=== PATIENT | female | born 1960 | race Caucasian/White ===

== ENCOUNTER 2022-04-21 17:18 | Emergency (ER) | payer BC ==
[2022-04-21 18:23] LABS: Bacteria Few /HPF (None Seen); Bilirubin Negative (Negative); Blood Large (Negative); Epithelial Cells Moderate /HPF (None Seen); Glucose, Urine Negative (Negative); Ketones Trace (Negative); Leukocyte Esterase Moderate (Negative); Nitrite Negative (Negative); Protein,Urine Dip 30 (Negative); RBC 0-2 /HPF (0-5)
[2022-04-21 18:24] LABS: ADD URINE CULTURE? YES (NO); Appearance Clear (Clear)
--- NOTE | 2022-04-21 18:34 | ERPHSYRPT ---
- History of Present Illness Time Seen by Provider: 04/21/22 18:33 Source: patient Exam Limitations: no limitations Patient Subjective Stated Complaint: Pt states "I had really bad belly pain and then I started bleeding from my lady parts. Blood is bright red and I do not hurt now but it was allot of blood." Triage Nursing Assessment: Pt presented alert and oriented X 3, skin pwd. Pt ambulates with an upright steady gait, able to speak in clear full sentences. Pt advised she has saturated two pads in the past hour. No apparent respiratory distress. Physician History: Patient is a 61-year-old female presents emergency department for evaluation of transient abdominal pain followed by vaginal bleeding. Symptoms occurred earlier today. Patient states that the pain is since resolved. Patient is pain-free. Patient's vaginal bleeding has resolved as well. Patient has no complaints at this time. When present symptoms were moderate to severe in intensity. Pain currently 0 out of 10. No trauma. No fever. Patient denies a history of the same. at bedside. They voiced no other complaints or concerns at this time. Portions of this note were created with voice recognition technology. There may be grammatical, spelling, punctuation or sound alike errors Timing/Duration: today Severity: moderate Modifying Factors: Improves With: nothing Associated Symptoms: denies symptoms Allergies/Adverse Reactions: doxycycline Allergy (Mild, Verified 10/16/13 12:06) Home Medications: Citalopram Hydrobromide [Celexa] 60 mg PO HS 10/14/13 [History] Omeprazole [Prilosec] 40 mg PO DAILY 10/14/13 [History] Losartan/Hydrochlorothiazide [Losartan-Hctz 50-12.5 mg Tab] 1 each PO DAILY 04/21/22 [History] Hx Tetanus, Diphtheria Vaccination/Date Given: No Hx Influenza Vaccination/Date Given: No Hx Pneumococcal Vaccination/Date Given: No Immunizations Up to Date: Yes Travel Risk - International Travel Have you traveled outside of the country in past 3 weeks: No - Coronavirus Screening Are you exhibiting any of the following symptoms?: No Close contact with a COVID-19 positive Pt in past 14-21 Days: No - Vaccine Status Have you recieved a Covid-19 vaccination: Yes First Aid Attendant: Moderna - Vaccination Dates Date of 2cond Vaccination (if applicable): 2020 - Review of Systems Constitutional: No Symptoms, No Fever, No Chills Eyes: No Symptoms Ears, Nose, & Throat: No Symptoms Respiratory: No Symptoms, No Cough, No Dyspnea Cardiac: No Symptoms, No Chest Pain, No Edema, No Syncope Abdominal/Gastrointestinal: No Symptoms, No Abdominal Pain, No Nausea, No Vomiting, No Diarrhea Genitourinary Symptoms: No Symptoms, No Dysuria Musculoskeletal: No Symptoms, No Back Pain, No Neck Pain Skin: No Symptoms, No Rash Neurological: No Symptoms, No Dizziness, No Focal Weakness, No Sensory Changes Psychological: No Symptoms Endocrine: No Symptoms Hematologic/Lymphatic: No Symptoms Immunological/Allergic: No Symptoms All Other Systems: Reviewed and Negative - Past Medical History Pertinent Past Medical History: Yes Neurological History: No Pertinent History ENT History: No Pertinent History Cardiac History: Hypertension Respiratory History: Pneumonia Endocrine Medical History: No Pertinent History Musculoskeletal History: Other GI Medical History: No Pertinent History History: No Pertinent History Psycho-Social History: Depression Female Reproductive Disorders: No Pertinent History - Past Surgical History Past Surgical History: Yes Neuro Surgical History: No Pertinent History Cardiac: No Pertinent History Respiratory: No Pertinent History Gastrointestinal: Exploratory Laparoscopy Genitourinary: No Pertinent History Musculoskeletal: Orthopedic Surgery Female Surgical History: Breast Implant Other Surgical History: "TOE SURGERY". hysterectomy - Social History Smoking Status: Former smoker How long have you smoked: YRS Exposure to second hand smoke: No Drug Use: none Patient Lives Alone: No - Nursing Vital Signs Nursing Vital Signs: Initial Vital Signs Temperature 97.5 F 04/21/22 17:24 Pulse Rate 87 04/21/22 17:24 Respiratory Rate 22 04/21/22 17:24 Blood Pressure 156/83 04/21/22 17:24 O2 Sat by Pulse Oximetry 97 04/21/22 17:24 Pain Scale Pain Intensity 0 - Physical Exam General Appearance: no apparent distress, alert Eye Exam: PERRL/EOMI, eyes nml inspection Ears, Nose, Throat Exam: normal ENT inspection, TMs normal, pharynx normal, moist mucous membranes Neck Exam: normal inspection, non-tender, supple, full range of motion Respiratory Exam: normal breath sounds, lungs clear, No respiratory distress Cardiovascular Exam: regular rate/rhythm, normal heart sounds, normal peripheral pulses Gastrointestinal/Abdomen Exam: soft, normal bowel sounds, No tenderness, No mass Back Exam: normal inspection, normal range of motion, No CVA tenderness, No vertebral tenderness Extremity Exam: normal inspection, normal range of motion, pelvis stable Neurologic Exam: alert, oriented x 3, cooperative, normal mood/affect, nml cerebellar function, nml station & gait, sensation nml, No motor deficits Skin Exam: normal color, warm, dry, No rash Lymphatic Exam: No adenopathy SpO2 Interpretation: normal SpO2: 97 O2 Delivery: Room Air - Course Nursing assessment & vital signs reviewed: Yes - CT Exams Abdomen/Pelvis CT Interpretation: Tele-radiologist Report (No comps. Negative abdomen pelvis.) Ordered Tests: Active Orders 24 hr Category Date Time Status ABDOMEN AND PELVIS W/0 CONTRAS [CT] Stat Exams 04/21/22 17:44 Taken CULTURE,URINE Stat Lab 04/21/22 18:08 Received UA W/RFX UR CULTURE Stat Lab 04/21/22 18:08 Completed Medication Summary Generic Name Dose Route Start Last Admin Trade Name Freq PRN Reason Stop Dose Admin Nitrofurantoin Macrocrystals 100 mg 04/21/22 19:44 Nitrofurantoin Macro 100 Mg Capsule PO 04/21/22 19:45 STAT ONE Lab/Rad Data: Laboratory Results 04/21/22 Range/Units 18:08 Urine Color Yellow (Yellow) Urine Appearance Clear (Clear) Urine pH 7.0 (4.6-8.0) Ur Specific [place] 1.020 (1.005-1.030) Urine Protein 30 (Negative) Urine Glucose (UA) Negative (Negative) mg/dL Urine Ketones Trace A (Negative) Urine Blood Large A (Negative) Urine Nitrite Negative (Negative) Urine Bilirubin Negative (Negative) Urine Urobilinogen 1.0 A (0.2) mg/dL Ur Leukocyte Esterase Moderate A (Negative) U Hyaline Cast (Auto) 3-5 A (0-2) /LPF Urine Microscopic RBC 0-2 (0-5) /HPF Urine Microscopic WBC 11-20 A (0-5) /HPF Ur Epithelial Cells Moderate A (None Seen) /HPF Urine Bacteria Few A (None Seen) /HPF Urine Culture Reflexed YES (NO) - Progress Progress: improved Progress Note: Patient is a 61-year-old female presents emergency department for evaluation of brief lower abdominal pain and vaginal bleeding. Episode occurred prior to arrival. However pain was transient. Patient currently pain-free. Upon arrival to our ED patient was pain-free. Vaginal bleeding essentially completely resolved. Physical exam nonremarkable. Unable to elicit abdominal pain or pelvic pain or tenderness. Patient declined pain medication because she has no pain. Patient's presentation was acute. No significant comorbidities to complicate patient's current symptomology. Patient states she has a history of hysterectomy. Tests ordered include urinalysis and CT abdomen pelvis. CT abdomen pelvis negative. Urinalysis reveals urinary tract infection. Patient received a dose of Macrobid in our ED. A prescription for Macrobid was forwarded to patient's pharmacy. Patient agrees to follow-up with her primary care doctor within 48 hours for evaluation. Patient also sees Dr. Arnold who is an IMPLEMENTATION ARCHIT[employer] physician in [place]. Patient understands the importance of follow-up. On the differential of vaginal bleeding in an elderly patient is malignancy. This was explained to patient. Urgent follow-up is imperative. Patient understands the importance of follow- up. at bedside. They both agree to follow-up with her IMPLEMENTATION ARCHITECT and primary care doctor for further evaluation and treatment. Level of EM service provided was moderate. Complexity of problem addressed was low. Complexity of data analyzed was low. Risk of complication and or risk of morbidity/mortality of patient management is moderate. A prescription for Macrobid was forwarded to patient's pharmacy. No critical care time. Patient served as an independent historian. Time spent during discharge is approximately 10 minutes. Patient voices no other complaints or concerns at this time. Portions of this note were created with voice recognition technology. There may be grammatical, spelling, punctuation or sound alike errors 04/21/22 19:48 Counseled pt/family regarding: lab results, diagnosis, need for follow-up, rad results Medical Desision Making - Diagnostic Testing Diagnostic Testing: Diagnostic tests were ordered,analyzed, and reviewed by me and used in my medical decision making for this patient. Radiologic studies (if ordered) were read by me initially then discussed with the radiologist . - Departure Departure Disposition: Home Clinical Impression: Urinary tract infection, Vaginal bleeding Condition: Stable Critical Care Time: No Referrals: BHAVIK MANJARREZ MD [Primary Care Provider] - Follow up/PCP as directed Prescriptions: Nitrofurantoin Macro 100 mg [Macrobid 100MG Capsule] 100 mg PO BID 7 Days #14 cap
[2022-04-21] MEDS ORDERED: Macrobid 100MG Capsule PO ONE (19:44)
[2022-04-21] MEDS ORDERED: Macrobid 100MG Capsule ONE (19:46)
[2022-04-21 19:50] VITALS: PULSE 79
[2022-04-21 19:51] VITALS: BP 144/76
[2022-04-21 19:52] VITALS: O2SAT 97
--- NOTE | 2022-04-22 08:35 | XRAY ---
Indication: Vaginal bleeding and pressure. Multiple contiguous axial images obtained through the abdomen and pelvis without contrast. Comparison: None Lung bases demonstrate minimal dependent atelectasis. Heart not enlarged. Small hiatal hernia. Noncontrasted stomach and bowel loops appear nonobstructed with normal appendix. Previous cholecystectomy and hysterectomy. No free fluid/air. Incidental splenic calcified granulomas. Remaining liver, pancreas, spleen, adrenal glands, kidneys, ureters, and bladder are unremarkable for noncontrast exam. Minimal aortic calcifications without AAA. Osseous structures intact with mild degenerative changes throughout the thoracolumbar spine and both hips. No ventral or inguinal hernias. Impression: 1. Small hiatal hernia, cholecystectomy, hysterectomy, arteriosclerotic disease, degenerative spondylosis, and old granulomatous disease. 2. Remaining CT abdomen/pelvis without contrast exam is negative.
== END 2022-04-21 20:00 | disposition home or self-care (01) ==
LOC: ED 17:18
DX: N39.0 Urinary tract infection, site not specified (principal); N93.9 Abnormal uterine and vaginal bleeding, unspecified; R10.9 Unspecified abdominal pain; I10 Essential (primary) hypertension; Z79.899 Other long term (current) drug therapy
CPT/HCPCS: 74176; 81001; 87077; 87086; 87186; 99283; A9270-GY

== ENCOUNTER → 2024-01-11 | Day surgery (SDC) | payer BC ==
[~2024-01-11] MED LIST: CEFAZOLIN 2 GM/100 ML NaCl 2 GM/100 ML IVPB IV ONE; DIPRIVAN 200 MG/20 ML IV ONE; Decadron 4 MG INJ ONE; Ephedrine Sulfate 50 MG/ML ONE; Hydromorphone 1 mg/ml Injection ONE; Lactated Ringers 1,000 ML IV ONE; MARCAINE 0.5%-EPI 1:200,000 VL IJ ONE; SUBLIMAZE 100 MCG/2 ML ONE; Zofran 4 MG/2 ML VIAL ONE
[2024-01-11] MEDS: Lactated Ringers 1,000 ML IV SCH (06:19)
[2024-01-11] MEDS: CEFAZOLIN 2 GM/100 ML NaCl 2 GM/100 ML IVPB IV SCH (06:20)
[2024-01-11 06:33] VITALS: RESP 18
[2024-01-11 06:59] LABS: ANION GAP 13.8 MEQ/L (5-15); Creatinine 1 1.15 mg/dL (0.52-1.04); EST GLOMERULAR FILTRATION RATE 53.5 ML/MIN; Potassium 4.1 mmol/L (3.5-5.1)
[2024-01-11 10:31] VITALS: BP 142/87; PULSE 91; TEMP 96.9; O2SAT 97
--- NOTE | 2024-01-13 10:18 | OP ---
SURGERY DATE/TIME: 01/11/2024 [id number] PREOPERATIVE DIAGNOSES: 1) Torn left medial and lateral menisci. 2) Chondromalacia patella. POSTOPERATIVE DIAGNOSES: 1) Torn left medial and lateral menisci. 2) Chondromalacia patella. 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 PROCEDURE: Arthroscopy of the left knee with partial medial and lateral meniscectomies, chondroplasty of the medial femoral condyle, patella and trochlear groove. SURGEON: Trent Perez II, DO ANESTHESIA: General. DESCRIPTION OF PROCEDURE AND FINDINGS: The patient was identified and informed consent was obtained. The patient was taken to the operative suite and given the general anesthetic. Following this, a tourniquet was placed high on the left thigh. The left lower extremity was then placed into the knee velasquez and prepped and draped in the usual sterile fashion. A standard time out was taken. At this point, the leg was exsanguinated and tourniquet elevated to 350 mmHg. A standard superomedial portal was created in the knee and then trocar and cannula were placed in the joint. The joint was distended with the arthroscopic pump. Inferolateral portal was created with an 11 blade and the arthroscope was placed in through our cannula. An 18-gauge spinal needle identified the level for the inferomedial portal which was also created with an 11 blade. The knee was then inspected in a systematic fashion. The suprapatellar pouch had no loose bodies or synovial hypertrophy. Undersurface of the patella had some grade 2 and 3 chondromalacia and a chondroplasty was performed utilizing the motorized shaver. The trochlear groove was noted to have some grade 3 and some early grade 4 chondromalacia and a chondroplasty was also performed. Patella seated nicely within the femoral groove at about 30 degrees of flexion. Gutters were inspected and no loose bodies or synovial hypertrophy was encountered. Scope was placed in the medial compartment where a tear was noted involving the middle and posterior horns of the medial meniscus, resecting with the handheld biting instruments and shaved to a smooth transition with the shaver. Patient did have some significant grade 2 and 3 chondromalacia on the medial femoral condyle and a chondroplasty was performed with the shaver. The scope was placed into the intercondylar notch region where the anterior cruciate ligament was noted to be intact. Scope was then placed in the lateral compartment where a small tear was noted in the lateral meniscus in the middle horn. This was resected with the handheld biting instruments and shaved to a smooth transition with the shaver. The knee was then reinspected and copiously irrigated. No further pathology identified. The instrumentation was removed and the portal sites were then closed with interrupted 4-0 nylon suture. Adaptics, 4 x 4's and a standard postop arthroscopy dressing applied. It should be noted that the knee was infiltrated with 30 mL of 0.25% Marcaine with epinephrine into the joint and portal sites. The patient was then transferred to the cart and taken to the recovery room in satisfactory condition having tolerated the procedure well.
== END ==
LOC: SDC 05:43
PROVIDERS: ATTEND Orthopaedic Surgery
DX: S83.222A Peripheral tear of medial meniscus, current injury, left knee, initial encounter (principal); S83.262A Peripheral tear of lateral meniscus, current injury, left knee, initial encounter; M25.562 Pain in left knee; M94.262 Chondromalacia, left knee
CPT/HCPCS: 36415; 80048; J0690; J1100; J1171; J2405; J2704; J3010

== ENCOUNTER 2024-12-17 05:51 | Day surgery (SDC) | payer BC ==
[2024-12-17] MEDS ORDERED: CEFAZOLIN SODIUM ONE (06:23)
[2024-12-17] MEDS: Decadron 4 MG PO ONE (06:27)
[2024-12-17] MEDS: NEURONTIN PO ONE (06:27)
[2024-12-17] MEDS: TYLENOL EXTRA STRENGTH 500 MG PO ONE (06:27)
[2024-12-17] MEDS: celeBREX 100 MG PO ONE (06:27)
[2024-12-17] MEDS: Lactated Ringers 1,000 ML IV SCH (06:28)
[2024-12-17] MEDS: TRANEXAMIC 1,000 MG/100ML-NACL 1,000 MG/100 ML PIGGYBACK IV ONE (06:28)
[2024-12-17 06:55] LABS: Calcium 9.1 mg/dL (8.4-10.2); Carbon Dioxide 28.0 mmol/L (22-30); Creatinine 1 1.15 mg/dL (0.52-1.04); EST GLOMERULAR FILTRATION RATE 53.2 ML/MIN; Glucose 112.0 mg/dL (74-106); Potassium 4.3 mmol/L (3.5-5.1)
[2024-12-17] MEDS ORDERED: Xylocaine-Mpf 2% 5 Ml Vial ONE (07:15)
[2024-12-17] MEDS ORDERED: propofoL IV ONE (07:15)
[2024-12-17] MEDS ORDERED: Zofran 4 MG/2 ML VIAL ONE (07:23)
[2024-12-17] MEDS ORDERED: PHENYLEPHRINE HCL ONE (07:33)
[2024-12-17] MEDS ORDERED: Naropin 0.5% 30 ML VIAL ONE (07:35)
[2024-12-17] MEDS ORDERED: Propofol 1000 mg/100 ml Bottle 100 ML IV ONE ×2 (07:38→09:06)
[2024-12-17] MEDS ORDERED: Versed 2 MG/2 ML Injection ONE (07:44)
[2024-12-17] MEDS ORDERED: Ephedrine Sulfate 50 MG/ML ONE (08:18)
[2024-12-17] MEDS ORDERED: Lactated Ringers 1,000 ML IV ONE (08:29)
--- NOTE | 2024-12-17 10:33 | XRAY ---
Indication: Postop exam. Portable AP/cross-table lateral left knee demonstrates osteopenia with intact total knee arthroplasty and postoperative soft tissue swelling/emphysema and effusion. No other bony, articular, or soft tissue abnormalities.
[2024-12-17] MEDS ORDERED: Zofran 4 MG/2 ML VIAL IV PRN (11:34)
[2024-12-17] MEDS ORDERED: Hydromorphone 1 mg/ml Injection IV PRN (11:35)
[2024-12-17] MEDS: NORCO 7.5/325 MG TAB PO PRN (12:03)
[2024-12-17] MEDS: Hydromorphone 1 mg/ml Injection IV PRN (15:20)
[2024-12-17] MEDS: NORCO 10-325 MG PO PRN (17:25)
[2024-12-17] MEDS: ceLEXa 20 MG PO SCH (21:06)
[2024-12-17] MEDS ORDERED: NON-FORMULARY ITEM (Citalopram Hydrobromide [Celexa] 40 MG Tablet) PO SCH (22:00)
[2024-12-18 03:42] VITALS: O2SAT 95
[2024-12-18 04:37] LABS: BASOPHIL % 0.1 % (0.1-1.2); Basophil (Absolute #) 0.01 x10^3/uL (0.01-0.08); Eosinophil (Absolute #) 0 x10^3/uL (0.04-0.36); Hematocrit 32.5 % (34.1-44.9); Hemoglobin 10.1 g/dL (11.2-15.7); IMMATURE GRAN # 0.06 x10^3u/L (0.001-0.031); IMMATURE GRAN % 0.5 % (0.001-0.429); Lymphocyte (Absolute #) 1.34 x10^3/uL (1.18-3.74); Mean Corpuscular Hemoglobin 29.6 pg (25.6-32.2); Mean Corpuscular Hgb Concent. 31.1 g/dL (32.2-35.5); Monocyte (Absolute #) 0.81 x10^3/uL (0.24-0.86); NUCLEATED RBC # 0.00 x10^3u/L (0.00-0.012); NUCLEATED RBC % 0.0 % (0.00-0.2); Platelet Count 260 x10^3/uL (182-369); Red Blood Count 3.41 x10^6/uL (3.93-5.22); White Blood Count 11.1 x10^3/uL (3.98-10.04)
[2024-12-18 07:00] VITALS: BP 123/64; PULSE 86; RESP 16; TEMP 97.7
[2024-12-18] MEDS: Ecotrin 325 MG PO SCH (08:24)
[2024-12-18] MEDS: hydroDIURIL 25 MG PO SCH (08:25)
[2024-12-18] MEDS: Protonix 40MG Tablet PO SCH (08:27)
[2024-12-18] MEDS: Cozaar 50 MG PO SCH (08:27)
[2024-12-18] MEDS ORDERED: NON-FORMULARY ITEM (Losartan/Hydrochlorothiazide [Losartan-Hctz 50-12.5 Mg Tab] 1 EACH Tab PO SCH (10:00)
[2024-12-18] MEDS ORDERED: NON-FORMULARY ITEM (Omeprazole [Prilosec] 40 MG Capsule.Dr) PO SCH (10:00)
--- NOTE | 2024-12-18 12:42 | OP ---
SURGERY DATE/TIME: 12/17/2024 [id number] PREOPERATIVE DIAGNOSIS: Osteoarthritis, left knee. POSTOPERATIVE DIAGNOSIS: Osteoarthritis, left knee. PROCEDURE: Left total knee replacement arthroplasty utilizing the [employer] instrumentation with a size 6 femoral component press-fit, a size C tibial component cemented, a 12 mm tibial polyethylene bearing tray, and a 25 x 8 single peg all-poly inset patella cemented. SURGEON: Trent Perez II, DO ANESTHESIA: Spinal with block for postoperative pain control. DESCRIPTION OF PROCEDURE AND FINDINGS: The patient was identified and informed consent was obtained. The patient was taken to the operative suite where the block was administered. Following this, spinal anesthetic was administered. Once an appropriate level of anesthesia had been obtained, the tourniquet was placed high on the left thigh, the left lower extremity was then prepped and draped in usual sterile fashion, and a standard time-out was taken. The leg was then exsanguinated and the tourniquet was elevated to 350 mmHg. Standard midline incision was accomplished with the knee in a slightly flexed position. Skin was incised. Dissection was carried out through the subcutaneous tissue. Retractors were positioned and standard medial parapatellar incision was accomplished with a fresh #10 blade. Upon entering the joint, a significant amount of grade 1 synovial fluid was encountered. Upon entering the joint, significant degenerative changes were noted at the patellofemoral joint as well as along the medial femoral condyle and tibial plateau. At this point, a portion of the infrapatellar fat pad, portions of the medial and lateral menisci and the anterior cruciate ligament were excised for visualization. Retractors were then positioned medially and laterally and at this point then the drill was utilized to drill a boat pilot hole in the femur, 10-inch intramedullary maricruz was then inserted, and the distal femoral cutting block was applied with 5 degrees of valgus cut. At this point, the distal femoral cut was accomplished. Sizer was then placed and held in position with pins for 3 degrees of external rotation. It was deemed that a size 6 femoral component was the appropriate size. At this point, the anterior, posterior, and chamfer cuts were then made, the wavers of bone removed. Any osteophytes were removed. There were no osteophytes on the posterior femur. At this point, our attention was now turned to the tibial side where a boat pilot hole was created in the tibia, intramedullary maricruz inserted, and the tibial guide was then applied and held with its pins. The proximal wafer of tibia was removed. Once this had been accomplished, the trial tibial component was then placed and held in position with its pins in appropriate rotation. The trial femoral component was then applied. The peg holes were then drilled in the femur through the trial for the permanent component. Trial tibial polyethylene trays were inserted. It was deemed that a size 12 gave excellent soft tissue balance in all planes of motion with no tibial lift off and excellent stability throughout the entire arc of motion from full extension to better than 135 degrees of flexion. At this point, the patellar button was them milled, measuring the pre-resection height and this matched the post-resection height. Patella tracking was noted to be excellent, thus a lateral release was not necessary. At this point, trial patella was removed as was the trial tibial polyethylene tray and the trial femur. The cruciate stem was cut in the tibial component and at this point then all trial instrumentation had been removed, the joint was copiously irrigated with pulsed claims technician and dried while the cement was being vacuum mixed. At this point, the cement was pressed into the interstices of the tibia with a cement gun. The tibial component was then cemented into position and impacted into place. Excess cement was removed during the curing process. The femoral component was then impacted into position and utilizing the 12 mm tibial polyethylene tray trial the knee was held in extension during the curing process. Patellar button was then cemented into position and held with its clamp. Once the cement had fully cured and all the excess cement had been removed, the knee was again placed through a range of motion and showed that the 12 mm poly was the appropriate size. The trial tibia was removed and the permanent component was then inserted after irrigating the joint and snapped into position. The joint was then irrigated and closed with #2 Stratafix, 2-0 Monocryl, and 3-0 Stratafix subcuticular for skin augmented with Dermabond. An Aquacel dressing was applied. The patient was then transferred to the bed and taken to the recovery room in satisfactory condition having tolerated the procedure well.
== END 2024-12-18 10:03 | disposition home or self-care (01) ==
LOC: SDC 05:51 → MED SURG 10:43 → SDC 12-18 10:03
PROVIDERS: ATTEND Orthopaedic Surgery
DX: M17.12 Unilateral primary osteoarthritis, left knee (principal)